=== PATIENT | female | born 1965 | race Caucasian/White ===

== ENCOUNTER 2024-11-30 06:47 | Emergency (ER) | payer OTHER, SELFPAY ==
[2024-11-30] VITALS (13 sets, daily range): BP systolic 102–140; BP diastolic 61–81; PULSE 103–125; RESP 18–22; TEMP 37.1–39.3; O2SAT 90–99; BMI 51.5
[2024-11-30] MEDS: ACETAMINOPHEN 500 MG TABLET 1000 MG PO ×2 (07:15→16:22)
--- NOTE | 2024-11-30 07:22 | EDNOTE_ITS ---
ED Back Injury Pain RME/HPI General Chief Complaint: Back Pain/Injury Stated Complaint: BACK PAIN AND NAUSEA Time Seen by Provider: 11/30/24 06:48 Arrival date/time: 11/30/24 06:47 This is a 59-year-old female that comes in with complaints of left flank pain and nausea that started 3 days ago. Patient states she has had a poor appetite for the past couple days. Per daughter she has not been urinating very much. Patient arrives to the emergency room febrile tachycardic. Her daughter she is also not acting herself. Patient can answer questions appropriately but is slow to respond. Patient has a history of diabetes, anxiety, hyperlipidemia, and high blood pressure. Per patient daughter at bedside patient gets frequent infections and it was clarified that the infections in her urine are secondary to kidney stones that she has had in the past. Per patient daughter she has had lithotripsy in the past. Patient reports some mild chest pain and shortness of breath. Patient denies any runny nose cough abdominal pain. Patient denies diarrhea Related Data Home Medications ?Medication ?Instructions ?Recorded ?Confirmed diazepam 5 mg tablet 5 mg PO TID 10/19/17 8 hydrocodone 10 mg-acetaminophen 1 tab PO Q6H PRN Pain 10/19/17 10/19/17 325 mg tablet (Horatio) Previous Rx's ?Medication ?Instructions ?Recorded meloxicam 7.5 mg tablet (Mobic) 7.5 mg PO QDAY #30 tab s 10/19/17 Allergies Allergy/AdvReac Type Severity Reaction Status Date / Time codeine Allergy Migraine Verified 10/19/17 12:05 Review of Systems Review of Systems Systems Reviewed: All systems reviewed, normal except as documented Past Medical History Past Medical History Comments PMH COMMENT: Diabetes high blood pressure anxiety ED Exam Narrative Physical exam: VITAL SIGNS: Reviewed. GENERAL APPEARANCE: Alert, follows commands HEAD AND FACE: Non-traumatic. ENT: PERRL, conjuctiva pink and clear, eyelid no trauma, Mucous membrane moist. NECK: Supple, nontender, no nuchal rigidity. CHEST: No tenderness, no crepitus, no paradoxical movement, no retractions. LUNGS: Clear, well ventilated, symmetric, no rales, no wheezing, no rhonchi, no stridor, good breath sounds bilaterally. HEART: Regular rate, regular rhythm, no murmur, no gallops. ABDOMEN: Soft, nondistended, no guarding, nontender, tender to palpation to left flank area NEUROLOGICAL: Gross motor function intact sensory function intact, Appropriate for age. MUSCULOSKELETAL: low back nontender, full range of motion. EXTREMITIES: No redness no swelling no skin breakdown on bilateral foot and leg. Distal neurovascular status intact bilateral foot, edema to bilateral lower extremities SKIN: Color pink Course Orders Category Date Time Status Bedside COVID-19 Antigen Test NOW Care 11/30/24 07:10 Active Bedside Influenza A&B Antigen Test NOW Care 11/30/24 07:11 Completed COVID-19 Screening Questionnaire NOW Care 11/30/24 12:34 Active [employer] Sorter Q4H START 00 Care 11/30/24 07:40 Active Decision to Admit X1 Care 11/30/24 12:34 Completed EKG (ED ONLY) *Do not use* NOW Care 11/30/24 07:09 Completed IV [Insert IV] STAT Care 11/30/24 07:09 Active In and Out Catheter X1 Care 11/30/24 09:45 Completed Referral - Commercial Attache Stat Cons 11/30/24 15:[address] abdomen pelvis wo con Stat Exams 11/30/24 13:42 Completed EKG (ED Only) Stat Exams 11/30/24 07:09 Ordered XR chest 1V Stat Exams 11/30/24 07:46 Completed BNP [B-Type Natriuretic Peptide] Stat Lab 11/30/24 07:50 Completed Blood Culture (Lab) Stat Lab 11/30/24 07:50 Received CBC Stat Lab 11/30/24 07:50 Completed Comprehensive Metabolic Panel Stat Lab 11/30/24 07:50 Completed Lactate (Lactic Acid) Stat Lab 11/30/24 07:50 Completed Lactate (Lactic Acid) Stat Lab 11/30/24 11:04 Completed Procalcitonin Stat Lab 11/30/24 07:50 Completed Troponin I Stat Lab 11/30/24 07:50 Completed Urinalysis, C/S if Indicated Stat Lab 11/30/24 09:46 Completed Urine Culture Stat Lab 11/30/24 09:46 Received Acetaminophen Tab [Tylenol ES Tab] Med 11/30/24 07:09 Discontinued 1,000 mg PO X1 ONE Acetaminophen Tab [Tylenol ES Tab] Med 11/30/24 16:01 Discontinued 1,000 mg PO X1 ONE Levofloxacin/D5w 750Mg Ivpb [Levaquin Ivpb] Med 11/30/24 17:15 Active 750 mg in 150 ml IV QDAY Ondansetron Odt [Zofran Odt] Med 11/30/24 07:22 Discontinued 4 mg PO X1 ONE Piper/Tazo 3.375 gm Premix [Zosyn] Med 11/30/24 09:42 Discontinued 3.375 gm in 50 ml IV X1 Ringers Lactated 1000 ml [Lactated Ringers] 1,000 ml Med 11/30/24 07:47 Discontinued IV 999 mls/hr Sodium Chloride 0.9% 1000 ml [Ns] 1,000 ml Med 11/30/24 07:09 Discontinued IV 999 mls/hr Sodium Chloride 0.9% 1000 ml [Ns] 1,000 ml Med 11/30/24 07:58 Discontinued IV 999 mls/hr Sodium Chloride 0.9% 1000 ml [Ns] 1,000 ml Med 11/30/24 10:27 Discontinued IV 999 mls/hr Vital Signs Vital signs: Vital Signs Temperature 102.7 F H 11/30/24 07:02 Pulse Rate 122 H 11/30/24 07:02 Respiratory Rate 22 H 11/30/24 07:02 Blood Pressure 140/80 H 11/30/24 07:02 Pulse Oximetry (%) 94 L 11/30/24 07:02 Oxygen Delivery Method Room Air 11/30/24 07:02 Back Pain / Injury MDM Narrative MDM Narrative:: Sepsis alert called upon patient arrival. Sepsis workup done. Patient was febrile and Tylenol given at that time. Labs reviewed white count 20.6 hemoglobin 14.3 hematocrit 41.9 platelet count of 142 neutrophil count of 91. Chemistry panel shows a sodium of 131 potassium 4.0 chloride 94 bicarb of 25.3 anion gap 12 BUN 14 and creatinine of 1.5 initial lactic acid was 2.4 and repeat lactic acid was 1.1 after 3 L of IV fluids. Total bili was 1.5, AST 33 ALT 31 alk phos 88. Troponin was less than 0.002 BNP was 27 procalcitonin showed 2.50 urine showed blood leukocyte Estrace, RBCs, W BCs high and bacteria. Patient was given a dose of Zosyn. Patient symptoms improved patient. Patient was less confused. I called hospitalist team to admit patient. They recommended that patient get a CT scan of abdomen pelvis because of her history of kidney stones. Upon arrival patient's daughter was telling me that she gets frequent infections and when I spoke to her again she clarified that she gets frequent infections secondary to kidney stones. CT abdomen pelvis ordered at that time. CT scan showed mild left hydronephrosis secondary to 4 mm left ureterovesical junction calculus. I called hospitalist team to admit patient after CT results and after discussion they did not accept patient because we do not have interventional radiology for 2 days and we also do not have urology on-call. They did try calling a local neurologist who is not on-call and they did not get a response. Because we do not have the resources of urologist and interventional radiologist they felt it was not safe to admit patient to the emergency room and requested transfer to another facility. At 1451 I spoke to urologist at [facility]. He states he will accept patient for transfer. He wants patient to be transferred as an ER to ER transfer. He wanted lab work to be done as soon as patient arrived back to the hospital. He wants us to continue the Zosyn and add Levaquin. I am informed patient of transfer. Patient is now made NPO. I spoke to physician in the emergency room Dr. Chavez dash who accepted ER to ER transfer. Chest x-ray Findings: Moderate enlargement cardiac contour Enlarged ectatic thoracic aorta. No lobar pneumonia or pulmonary edema Prominent osteopenia Impression: Moderate enlargement cardiac contour No pneumonia or pulmonary edema CT abdomen pelvis: Findings: Diffuse fatty infiltration throughout the liver, liver moderately enlarged with irregular contour No gallstones Spleen is not enlarged No pancreatic mass 2 mm right renal calculus Mild left hydronephrosis secondary to 4 mm left ureterovesical junction calculus 4 cm left pelvic cystic mass Colonic diverticulosis. No bowel obstruction No pericecal inflammatory change. 25 mm fat-containing umbilical hernia Impression: Mild left hydronephrosis secondary to 4 mm left ureterovesical junction calculus. Recommend pelvic sonography to assess for 4 cm left pelvic cyst Medications / Prescriptions Medication administrations:: Medication Administration History Levofloxacin/Dextrose (Levaquin Ivpb) 750 mg in 150 mls @ 100 mls/hr IV QDAY CONNER Stop: 12/07/24 17:14 Last Admin: 11/30/24 17:29 Dose: 100 mls/hr Documented By: DO Discontinued Medications Acetaminophen (Acetaminophen 500 Mg Tablet) 1,000 mg PO X1 ONE Stop: 11/30/24 07:10 Last Admin: 11/30/24 07:15 Dose: 1,000 mg Documented By: DANUTA Acetaminophen (Acetaminophen 500 Mg Tablet) 1,000 mg PO X1 ONE Stop: 11/30/24 16:02 Last Admin: 11/30/24 16:22 Dose: 1,000 mg Documented By: Sodium Chloride (Ns) 1,000 mls @ 999 mls/hr IV .Q1H1M ONE Stop: 11/30/24 08:09 Last Infusion: 11/30/24 08:40 Dose: Infused Documented By: Admin: 11/30/24 07:45 Dose: 999 mls/hr Documented By: Lactated Ringer's (Lactated Ringers) 1,000 mls @ 999 mls/hr IV .Q1H1M ONE Stop: 11/30/24 08:47 Last Admin: 11/30/24 07:59 Dose: Not Given Documented By: Non-Admin Reason: Cancelled by Provider Sodium Chloride (Ns) 1,000 mls @ 999 mls/hr IV .Q1H1M ONE Stop: 11/30/24 08:58 Last Infusion: 11/30/24 09:15 Dose: Infused Documented By: Admin: 11/30/24 08:01 Dose: 999 mls/hr Documented By: BEENA Piperacillin/Tazobactam/Dextrose (Zosyn) 3.375 gm in 50 mls @ 100 mls/hr IV X1 ONE Stop: 11/30/24 10:11 Last Infusion: 11/30/24 12:54 Dose: Infused Documented By: Admin: 11/30/24 10:39 Dose: 100 mls/hr Documented By: Sodium Chloride (Ns) 1,000 mls @ 999 mls/hr IV .Q1H1M ONE Stop: 11/30/24 11:27 Last Infusion: 11/30/24 12:54 Dose: Infused Documented By: Admin: 11/30/24 10:40 Dose: 999 mls/hr Documented By: Ondansetron HCl (Ondansetron Odt 4 Mg Tabrap) 4 mg PO X1 ONE; Protocol Stop: 11/30/24 07:23 Last Admin: 11/30/24 07:46 Dose: 4 mg Documented By: DO Critical Care Time Critical Care Time Attestation: Due to high probability of clinical significant, life threatening deterioration, the patient required my highest level of preparedness to intervene emergently and I personally spent this critical care time directly and personally managing the patient. This critical care time included obtaining history; examining the patient; pulse oximetry; ordering and reviewing of studies; arranging urgent treatment with development of a management plan; evaluation of patient's response to treatment; frequent reassessment; and, discussions with other providers. This critical care time was performed to assess and manage the high probability of imminent, life-threatening deterioration that could result in multi organ failure. It was exclusive of separately billable procedures and treating other patients. Please see MDM (medical decision making) section and the rest of the note for further information on patient assessment and treatment. Critical care time Discharge Plan Prescriptions/Referrals Prescriptions/Med Rec: No Action hydrocodone-acetaminophen [Horatio] 10-325 mg Tablet 1 tab PO Q6H PRN (Reason: Pain) diazepam 5 mg Tablet 5 mg PO TID meloxicam [Mobic] 7.5 mg tablet 7.5 mg PO QDAY Qty: 30 0RF Referrals: No Primary/Family,Physician [Primary Care Provider] - In 1 week Problem List Clinical Impression: Sepsis, Pyelonephritis, Kidney stone, Fever Patient/Caregiver Discharge Instructions Print Language: Iraqi
--- NOTE | 2024-11-30 07:40 | PC.NURSE ---
pt came in with complaints of left flank pain and nausea that started 3 days ago. Patient reports poor appetite for the past couple days and decreased urination. pt febrile on tachy on arrival. sepsis alert was called and sepsis protocol initiated.
[2024-11-30] MEDS: SODIUM CHLORIDE 0.9% 1000 ML 1,000 ML 999 ML IV ×3 (07:45→10:40)
[2024-11-30] MEDS: ONDANSETRON ODT 4 MG TABRAP PO (07:46)
--- NOTE | 2024-11-30 07:46 | XR_ITS ---
Examination: AP chest single view Technique: AP portable upright chest single view Date and time: November 30, 2024, 0949 hrs. Comparison October 19, 2017. Indications: Fever chest pain nausea today. Findings: Moderate enlargement cardiac contour Enlarged ectatic thoracic aorta. No lobar pneumonia or pulmonary edema Prominent osteopenia Impression: Moderate enlargement cardiac contour No pneumonia or pulmonary edema
[2024-11-30 08:10] LABS: Lactate (Lactic Acid) 2.4 mMol/L (0.4-2.0)
[2024-11-30 08:13] LABS: Basophils # (Auto) 0.0 Thou/mm3 (0.0-0.2); Basophils % (Auto) 0 % (0-2.5); Eosinophils # (Auto) 0.0 Thou/mm3 (0.0-0.5); Eosinophils % (Auto) 0 % (0-10); Hematocrit 41.9 % (36.0-46.0); Hemoglobin 14.3 g/dL (12.0-16.0); Immature Granulocytes Auto 0.14 Thou/mm3 (0.00-0.00); Lymphocytes # (Auto) 0.8 Thou/mm3 (1.0-4.8); Lymphocytes % (Auto) 4 % (10-50); Mean Corpuscular HGB Conc 34.1 g/dl (31.0-37.0); Mean Corpuscular Hemoglobin 28.8 pg (25.0-35.0); Mean Corpuscular Volume 85 fL (80-100); Monocytes # (Auto) 0.9 Thou/mm3 (0.0-0.8); Monocytes % (Auto) 5 % (0-12); Neutrophils # (Auto) 18.6 Thou/mm3 (1.8-7.7); Neutrophils % (Auto) 91 % (37-80); Nucleated Red Blood Cell # 0.00 Thou/mm3 (0.00-0.00); Nucleated Red Blood Cell % 0 /100 WBC (0); Platelet Count 142 Thou/mm3 (140-440); RDW Standard Deviation 44.1 fL (36.4-46.3); Red Blood Count 4.96 Miln/mm3 (4.00-5.20); White Blood Count 20.6 Thou/mm3 (3.6-11.0)
[2024-11-30 08:40] LABS: B-Type Natriuretic Peptide 27 pg/mL (0-100)
[2024-11-30 08:49] LABS: Alanine Aminotransferase 31 U/L (10-49); Albumin, Serum 4.4 gm/dL (3.5-5.0); Albumin/Globulin Ratio 1.3 (1.2-2.2); Alkaline Phosphatase 88 U/L (46-116); Anion Gap 12 (7-16); Aspartate Amino Transferase 33 U/L (0-34); BUN/Creatinine Ratio 9 Ratio (12-20); Bilirubin,Total 1.5 mg/dL (0.3-1.2); Blood Urea Nitrogen 14 mg/dL (9-23); Calcium 9.2 mg/dL (8.3-10.6); Calcium (Corrected) 9.2 mg/dL (8.5-10.1); Carbon Dioxide 25.3 mMol/L (20.0-31.0); Chloride 94 mMol/L (98-107); Creatinine (Component) 1.5 mg/dL (0.6-1.3); Estimated Creatinine Clearance 56.3 mL/min (>60); Globulin 3.4 gm/dL (2.3-3.5); Glucose 194 mg/dL (74-106); Osmolality,Calculated 268 (275-295); Potassium 4.0 mMol/L (3.4-5.1); Procalcitonin 2.50 ng/ml (0.0-0.49); Sodium 131 mMol/L (136-145); Total Protein 7.8 gm/dL (5.7-8.2); Troponin I < 0.002 ng/mL (0.0-0.045); eGFR 40 See Note
[2024-11-30 10:10] LABS: Collection Type, Urine Voided; Squamous Epithelial Cell,Urine 0 /hpf (0-5)
--- NOTE | 2024-11-30 10:15 | PC.NURSE ---
pt up to bedside commode
--- NOTE | 2024-11-30 10:15 | PC.NURSE ---
pt up to bedside commade
[2024-11-30] MEDS: PIPER/TAZO 3.375 GM PREMIX 3.375 GM/50 ML BAG IV (10:39)
[2024-11-30 10:40] LABS: Bacteria,Urine 3+; Bilirubin,Urine Negative (Negative); Blood,Urine 3+ (Negative); Clarity,Urine Turbid (Clear/Hazy); Color,Urine Orange (Lt Yel-Yel); Culture Indicated,Urine Yes; Glucose, Urine Negative (Negative); Ketones,Urine Negative (Negative); Leukocyte Esterase,Urine Positive (Negative); Nitrite,Urine Negative (Negative); PH,Urine 6.0 (5.0-7.0); Protein,Urine 2+ (Neg - Trace); RBC,Urine 38 /hpf (0-3); Specific Gravity,Urine 1.007 (1.001-1.035); Urobilinogen,Urine Negative mg/dL (0.0-1.0); WBC,Urine 3239 /hpf (0-5)
[2024-11-30 11:01] LABS: Reflex Lactate? Y
[2024-11-30 11:20] LABS: Lactate (Lactic Acid) 1.1 mMol/L (0.4-2.0)
--- NOTE | 2024-11-30 13:42 | XR_ITS ---
Examination: CT abdomen and pelvis without contrast. Coronal 3-D reconstructions. Sagittal 2-D reconstructions. Date and time of exam:November 30, 2024, 1350 hrs. Indications: Bilateral flank pain with fever today CTDI: vol (mGy): 23.7 DLP: (mGycm): 1283 Technique: Axial images of the abdomen have been obtained, 3 mm slice thickness Intravenous contrast material has not been administered. Low dose protocols were performed. One or more of the following dose reduction techniques were used; automated exposure control, adjustment of the mA and/or KV according to patient size, use of iterative reconstruction technique. Findings: Diffuse fatty infiltration throughout the liver, liver moderately enlarged with irregular contour No gallstones Spleen is not enlarged No pancreatic mass 2 mm right renal calculus Mild left hydronephrosis secondary to 4 mm left ureterovesical junction calculus 4 cm left pelvic cystic mass Colonic diverticulosis. No bowel obstruction No pericecal inflammatory change. 25 mm fat-containing umbilical hernia Impression: Mild left hydronephrosis secondary to 4 mm left ureterovesical junction calculus. Recommend pelvic sonography to assess for 4 cm left pelvic cyst
--- NOTE | 2024-11-30 13:50 | PC.NURSE ---
pt to ct
--- NOTE | 2024-11-30 14:40 | PC.NURSE ---
DR MUÑOZ AT BEDSIDE TO SEE PT
--- NOTE | 2024-11-30 15:00 | ESCONSULT_ITS ---
<Statement entered by Chastity Spence MD - 12/02/24 08:12> I have reviewed the note and agree with the resident's assessment & plan with exceptions as below. I have personally reviewed labs, imaging, home meds/prior records, examined the patient, formulated and discussed management plan with the IM team. Chastity Spence, PGY-2 Internal Medicine HPI Data of Consult Consult date: 11/30/24 Requesting Physician: Dr. Jama Primary Care Provider: Physician No Primary/Family Consult Narrative History of present illness: 59 yo female with a pmh of nephrolithiasis requiring lithotripsy, pyelonephritis, T2DM, HTN, HLD, and depression presents with left sided flank/back pain for the past 3 days. Patient reports that the pain is sharp, constant, nonradiating, and progressive. The pain was a 7/10 at onset and increased to an 8/10 today. Patient also endorses nausea, and fevers as well as confusion this morning. The patients daughter confirms that patient was not herself, and seemed forgetful. The patient has tried tyelnol 500mg at home which did not help her symptoms, and she denies any alleviating or worsening factors. She states that the flank pain feels similar to the kidney stones she had around 30 years ago. She had kidney stones during both of her pregnancies requiring lithotripsy each time. She also confirms associated pyelonephritis at those times.Currently she denies dysuria, blood in the urine, vaginal discharge, chest pain, fevers, confusion, and sob. ED Course: Vitals: Temp: 102.7 HR: 122 RR: 22 BP: 140/80 Meds administered: acetaminophen 1,000mg tab, ondansetron 4mg, NS 1,000 ml @999 ml/hr x3, Zosyn 3.375gm IV x1, Levofloxacin 750 mg in 150 ml IV Qday, Labs: WBC: 20.6, Na+ 131, Cl: 94, Cr: 1.5 (baseline 1.3), eGFR 40, Procalcitonin 2.5, UA: 2+ protein, 3+ blood, + leukocyte esterase, 3239 wbc, 38 rbc, 3+ bacteria Imaging: CXR- moderate enlargement cardiac contour, enlarged ectatic thoracic aorta, no lobar pneumonia/pulmonary edema, prominent osteopenia Pending: Urine culture, blood culture cc:: Left flank pain and fever Review of Systems Review of Systems Systems Reviewed: All systems reviewed, normal except as documented Past Medical History Past Medical History CARDIAC: Positive Cardiac Disorders (Patient endorses being told that her ejection fraction is 45% ), Coronary Artery Disease (Pt reports having a coronary angio scheduled for ), Hypercholesterolemia and Hypertension GENITOURINARY: Positive Kidney Stones (complicated by pyelonephritis and requiring lithotripsy) ENDOCRINE: Positive Diabetes Mellitus Type 2 PSYCHO/SOCIAL: Positive Depression Family History FAMILY HISTORY: Positive Family Cardiac Disorders (Patients father and paternal grandmother passed from [place].) Surgical History SURGICAL: Positive Angiogram (hx of 1 angiogram, second one scheduled for upcoming ) OTHER SURGICAL HX: Hx appendectomy Social History SOCIAL: Pt endorses hx of smoking a pack of cigarettes a day for 2-3 years. She quit 30 years ago. She denies recreational drug use and confirms drinking alcohol socially (last drink was several years ago) Exam Vital Signs Temp Pulse Resp BP Pulse Ox O2 Del Method O2 Flow Rate 99.7 F 103 H 19 108/81 99 Nasal Cannula 3 11/30/24 14:10 11/30/24 14:10 11/30/24 14:10 11/30/24 14:10 11/30/24 14:10 11/30/24 14:10 11/30/24 14:10 Narrative Exam General:Patient is in NAD, A&O x3, conversant, normal mood and affect HEENT: PERRL, EOM intact, normocephalic atraumatic Cardio: Normal S1 S2 with no murmurs rubs or gallops. Peripheral pulses 2+ at peripheral radial and dorsalis pedis. Pulm: Lungs clear to auscultation bilaterally, with no wheezes, rhonchi, or crackles Abdominal: Abdomen is soft, with mild tenderness in the epigastric and suprapubic regions. There is no rigidity or guarding. Patient has CVA tenderness on the left MSK: Strength 5/5 in bilateral upper and lower extremity with full ROM. Neuro:CN 2-12 grossly intact, strength 5/5 bilateral upper and lower extremity, sensation intact BUE and BLUE. Constitutional Constitutional: no acute distress and morbidly obese Results Labs 11/30/24 07:50 11/30/24 07:50 Labs: Short CBC 11/30/24 Range/Units 07:50 WBC 20.6 H (3.6-11.0) Thou/mm3 Hgb 14.3 (12.0-16.0) g/dL Hct 41.9 (36.0-46.0) % Plt Count 142 (140-440) Thou/mm3 BMP 11/30/24 07:50 Sodium 131 L Potassium 4.0 Chloride 94 L Carbon Dioxide 25.3 BUN 14 Creatinine 1.5 H Glucose 194 H Calcium 9.2 Cardiac Enzymes 11/30/24 Range/Units 07:50 Troponin I < 0.002 (0.0-0.045) ng/mL Liver Function 11/30/24 Range/Units 07:50 Total Bilirubin 1.5 H (0.3-1.2) mg/dL AST 33 (0-34) U/L ALT 31 (10-49) U/L Alkaline Phosphatase 88 (46-116) U/L Albumin 4.4 (3.5-5.0) gm/dL Urine 11/30/24 Range/Units 09:46 Urine Color [place] A (Lt Yel-Yel) Urine Clarity Turbid A (Clear/Hazy) Urine pH 6.0 (5.0-7.0) Ur Specific [place] 1.007 (1.001-1.035) Urine Protein 2+ A (Neg - Trace) Urine Glucose (UA) Negative (Negative) Quality Measures Quality Measures none Medications Home Medications and Allergies Home Medications ?Medication ?Instructions ?Recorded ?Confirmed ?Type diazepam 5 mg tablet 5 mg PO TID 10/19/17 8 History hydrocodone 10 mg-acetaminophen 1 tab PO Q6H PRN Pain 10/19/17 10/19/17 History 325 mg tablet ([place]) Allergies Allergy/AdvReac Type Severity Reaction Status Date / Time codeine Allergy Migraine Verified 10/19/17 12:05 Visit Medications Discontinued Medications Acetaminophen (Acetaminophen 500 Mg Tablet) 1,000 mg PO X1 ONE Stop: 11/30/24 07:10 Last Admin: 11/30/24 07:15 Dose: 1,000 mg Sodium Chloride (Ns) 1,000 mls @ 999 mls/hr IV .Q1H1M ONE Stop: 11/30/24 08:09 Last Infusion: 11/30/24 08:40 Dose: Infused Lactated Ringer's (Lactated Ringers) 1,000 mls @ 999 mls/hr IV .Q1H1M ONE Stop: 11/30/24 08:47 Last Admin: 11/30/24 07:59 Dose: Not Given Sodium Chloride (Ns) 1,000 mls @ 999 mls/hr IV .Q1H1M ONE Stop: 11/30/24 08:58 Last Infusion: 11/30/24 09:15 Dose: Infused Piperacillin/Tazobactam/Dextrose (Zosyn) 3.375 gm in 50 mls @ 100 mls/hr IV X1 ONE Stop: 11/30/24 10:11 Last Infusion: 11/30/24 12:54 Dose: Infused Sodium Chloride (Ns) 1,000 mls @ 999 mls/hr IV .Q1H1M ONE Stop: 11/30/24 11:27 Last Infusion: 11/30/24 12:54 Dose: Infused Ondansetron HCl (Ondansetron Odt 4 Mg Tabrap) 4 mg PO X1 ONE; Protocol Stop: 11/30/24 07:23 Last Admin: 11/30/24 07:46 Dose: 4 mg Assessment & Plan Plan Assessment and Plan This is a 59 yo female with a pmh of nephrolithiasis requiring lithotripsy, pyelonephritis, T2DM, HTN, HLD, and depression who presented with left flank pain and fever for the past 3 days. She was found to be febrile, tachypneic, tachycardic, with leukocytosis and lactic acidosis. Further workup revealed CVA tenderness on the left side, and mild left hydronephrosis secondary to a 4mm left utereovesical junction calculus on CTAP. #? sepsis, secondary to #pyelonephritis #Mild Left Hydronephrosis #UTI Patient met 4/4 SIRS criteria upon admission, QSOFA score 0 WBC 20.6 on admission, Lactic acid 2.4 which resolved after fluid boluses Procalcitonin 2.5 on admission Left sided CVA tenderness UA: 3+ RBC 3239 WBC, + leuk esterase, and 3+ bacteria; urine cxr pending Due to concern for ureteral calculi/nephrolithiasis we recommended CT Abdomen pelvis non con. CT AP wo con: Mild left hydronephrosis secondary to 4 mm left ureterovesical junction calculus. Incidental findings: 2 mm right renal calculus. 25mm fat containing umbilical hernia, 4cm L pelvic cystic mass, colonic diverticulosis -Due to concern for obstruction patient will likely require nephrostomy as she is currently septic with high likelihood of acute worsening without intervention, we are unable to provide this service and patient will require transfer to a capable facility. Plan: -Continue antipyretics -Continue Analgesia -Continue broad spectrum antibiotics -Transfer to facility with available inpatient Interventional Urology as patient may require nephrostomy tube placement. Consultation note was discussed with and reviewed by my senior resident, Dr. Spence and my attending Dr. Evita Escobar, [facility] IV Attending Provider Attestation/Addendum 59-year-old female with sepsis secondary to UTI evaluated transferred to higher level of care for urology and or IR for nephrostomy acutely. Patient was seen and examined in the emergency room Discussed with housestaff
--- NOTE | 2024-11-30 15:29 | PC.CC ---
Addendum entered by Nayana Contreras RN 11/30/24 17:42: 1700- Patient was accepted to [facility] ER to ER, by Nohemi under Dr. Chavez Mejia, report to be called to [phone] 1720 CD made, chart printed, all forms and consents signed, chart left Charge nurse 1740- Called [facility] to set up transport, eta 194 Addendum entered by Nayana Contreras RN 11/30/24 16:38: Spoke to Carrie at [facility] who declined patient due to not having urolog, called Virgen back at [facility], she states she will update her urologist and call back Addendum entered by Nayana Contreras RN 11/30/24 16:11: Virgen called back and states her Urologist called back and stated patient needs to go to [facility] for an emergent nephrostomy because [facility] is closer, chart faxed to [facility], will wait for call back Addendum entered by Nayana Contreras RN 11/30/24 15:46: Virgen from [facility] called back to speak to MANNY Alvarado Original Note: CN Zoila called to initiate transfer for Urology services, pt has 4 mm calculous in left uretervesticular junction, with hydronephrosis and sepsis. Spoke to Nohemi at [facility] transfer center, chart faxed will wait for call back.
--- NOTE | 2024-11-30 16:30 | PC.NURSE ---
PT REQUESTING FOOD. OKAY FOR PT TO EAT PER JUSTO FERRYBOAT HELPER
[2024-11-30] MEDS: LEVOFLOXACIN/D5W 750MG IVPB 750 MG/150 ML BAG 100 MG IV (17:29)
--- NOTE | 2024-11-30 18:04 | PC.NURSE ---
REPORT GIVEN TO ALLEGRA AT [facility]
== END 2024-11-30 20:07 | disposition short-term general hospital (02) ==
PROVIDERS: Nurse Practitioner Family; Emergency Provider Emergency Medicine
DX: A41.9 Sepsis, unspecified organism (principal); N13.6 Pyonephrosis; I11.9 Hypertensive heart disease without heart failure; Z75.1 Person awaiting admission to adequate facility elsewhere
CPT/HCPCS: 51701; 36415; 71045; 74176; 80053; 81001; 83605; 83880; 84145; 84484; 85025; 87040; 87077; 87086; 87186; 87400; 87811; 96361; 96365; 96366; 99285; J1956; J2543; J7030; Q0162; A9270